=== PATIENT | female | born 1945 | race Caucasian/White ===

== ENCOUNTER 2024-02-05 14:28 | Outpatient (REF) | payer SELFPAY ==
[2024-02-05 15:12] LABS: Anion Gap 16 (12-20); Blood Urea Nitrogen 34 mg/dL (9-16); Calcium 8.5 mg/dL (8.4-10.2); Carbon Dioxide 28 mmol/L (22-29); Chloride 97 mmol/L (96-108); Estimated Glomerular Filt Rate 39; Glucose Random 165 mg/dL (60-115); Potassium 2.9 mmol/L (3.3-5.1); Sodium 138 mmol/L (135-145)
== END 2024-02-05 14:29 | disposition home or self-care (01) ==
LOC: HO.HVNA 14:28
PROVIDERS: Visit Provider Internal Medicine Cardiovascular Disease
DX: I50.32 Chronic diastolic (congestive) heart failure (principal)
CPT/HCPCS: 36415; 80048